=== PATIENT | male | born 2000 | race Caucasian/White ===

== ENCOUNTER 2021-08-19 06:47 | Emergency (ER) | payer BC, SELFPAY ==
[2021-08-19 06:57] VITALS: BP 142/84; PULSE 89; RESP 16; TEMP 36.7; O2SAT 98
--- NOTE | 2021-08-19 07:07 | ED.GENADULT ---
HPI - General Adult General Chief complaint: Unspecified Stated complaint: not feeling well. Got my vaccine yesterday. Time Seen by Provider: 08/19/21 06:53 Source: patient History of Present Illness HPI narrative: Patient presents with generalized fatigue and not feeling well with associated nausea and vomiting. He reports he got his Covid vaccine yesterday he was initially doing well however in the light started to feel tired he was concerned so wanted to come to the ER for evaluation. He also reports he has a toothache which he is seeing a dentist for is given antibiotics and steroids however is pain has continued and is noted swelling he is unsure if this is contributing to his symptoms. Specifically, cough, abdominal pain, fevers or chills Related Data Allergies Allergy/AdvReac Type Severity Reaction Status Date / Time No Known Allergies Allergy Unverified 08/19/21 07:19 Review of Systems Review of Systems: CONSTITUTIONAL: Denies fever, chills, or sweats. EYES: Denies visual changes, redness, or discharge. ENT: Denies rhinorrhea, congestion, sore throat, or otalgia. CARDIOVASCULAR: Denies chest pain, palpitations, or edema. RESPIRATORY: Denies cough or dyspnea. GASTROINTESTINAL: Denies abdominal pain, or diarrhea. GENITOURINARY: Denies dysuria or hematuria. SKIN: Denies rash or itching. MUSCULOSKELETAL: Denies back pain, joint pain, or myalgia. NEUROLOGIC: Denies headache, numbness, dizziness, or weakness. PSYCHIATRIC: Denies anxiety or depression. All systems reviewed & are unremarkable except as noted in HPI and below PMFSH Social History Social History (Updated 08/19/21 @ 07:10 by Juan Levy MD) Alcohol intake: never Exam Narrative: GENERAL: Well-appearing, well-nourished, and in no acute distress. HEAD: Normocephalic, atraumatic. EYES: PERRLA and EOMI. ENT: Nares clear, no rhinorrhea or epistaxis. Mucous membranes moist. Moderate swelling on the right upper gumline with erythema and tenderness palpation NECK: Supple. No masses. No JVD ABDOMEN: Soft, nontender, nondistended, normal active bowel sounds. EXTREMITIES: Normal range of motion. No edema. SKIN: Warm, dry, no rash. NEURO: No focal deficits. Alert and oriented x3. PSYCH: Normal mood and affect. Course Vital Signs Vital signs: Vital Signs Temperature 36.7 C 08/19/21 06:57 Pulse Rate 89 08/19/21 06:57 Respiratory Rate 16 08/19/21 06:57 Blood Pressure 142/84 H 08/19/21 06:57 Pulse Oximetry 98 08/19/21 06:57 Temperature 36.5 C 08/19/21 07:39 Pulse Rate 90 08/19/21 07:39 Respiratory Rate 14 08/19/21 07:39 Blood Pressure 112/62 08/19/21 07:39 Pulse Oximetry 100 08/19/21 07:39 Medical Decision Making MDM Narrative Medical decision making narrative: H&P as above, vss, pt looks clinically well, exam is reassuring, labs/img considered, symptomatic relief available as needed, on reevaluation pt continues to looks clinically well. Suspect fatigue and malaise is related to recent Covid vaccination site recovery in the next 24 to 48 hours, number pain and swelling is likely a dental abscess. Patient is already established care with a dentist who prescribed him antibiotics and steroids. Patient encouraged to contact his dentist for possible drainage and reevaluation. dns severe sepsis, airway compromise, severe dehydration. plan to tx/monitor as op w/ pcm f/u findings/plan discussed with pt, pt agree/comfortable with plan, return precautions given Vital Signs Vital Signs: Vital Signs Temperature 36.7 C 08/19/21 06:57 Pulse Rate 89 08/19/21 06:57 Respiratory Rate 16 08/19/21 06:57 Blood Pressure 142/84 H 08/19/21 06:57 Pulse Oximetry 98 08/19/21 06:57 Temperature 36.5 C 08/19/21 07:39 Pulse Rate 90 08/19/21 07:39 Respiratory Rate 14 08/19/21 07:39 Blood Pressure 112/62 08/19/21 07:39 Pulse Oximetry 100 08/19/21 07:39 Discharge Plan Discharge Clinical Impression: Ab
[2021-08-19 07:39] VITALS: BP 112/62; PULSE 90; RESP 14; TEMP 36.5; O2SAT 100
== END 2021-08-19 07:40 | disposition home or self-care (01) ==
LOC: ANHED 07:14
PROVIDERS: Emergency Provider Emergency Medicine; PCP Pediatrics
DX: R53.83 Other fatigue (principal); R11.2 Nausea with vomiting, unspecified; K04.7 Periapical abscess without sinus
CPT/HCPCS: 99283

== ENCOUNTER 2024-01-12 06:21 | Emergency (ER) | payer BC, MEDICAID, SELFPAY ==
[2024-01-12 06:22] VITALS: BP 181/97; PULSE 100; RESP 20; TEMP 36.6; O2SAT 97
[2024-01-12 06:34] LABS: Basophils Absolute Auto 0.1 K/mm3 (0.0-0.1); Basophils Percent Auto 0.7 % (0.2-1.2); Eosinophils Percent Auto 0.5 % (0-4.4); Hematocrit 48.1 % (42.0-52.0); Hemoglobin 16.1 g/dL (14.0-18.0); Immature Granulocyte Absolute 0.16 K/mm3 (0.00-0.031); Immature Granulocyte Percent A 1.9 % (0-0.5); Lymphocytes Absolute Auto 1.51 K/mm3 (0.9-3.2); Mean Corpuscular HGB Conc 33.5 g/dl (32-36); Mean Corpuscular Hemoglobin 32.4 pg (26-34); Mean Corpuscular Volume 96.8 fl (80-100); Mean Platelet Volume 9.3 fl (7.4-10.4); Monocytes Absolute Auto 0.7 K/mm3 (0.1-0.6); Monocytes Percent Auto 8.6 % (2.6-8.5); Neutrophils Absolute Auto 5.9 K/mm3 (1.3-6.7); Neutrophils Percent Auto 70.3 % (45.5-73.1); Platelet Count Result 326 k/mm3 (150-375); Red Blood Count 4.97 M/mm3 (4.6-6.20); Red Cell Distribution Width 12.9 % (11.5-14.5); White Blood Count 8.4 K/mm3 (4.5-10.0)
[2024-01-12 06:46] LABS: INR 0.8; Prothrombin Time 11.7 Seconds (11.1-14.7)
[2024-01-12 06:47] LABS: Alanine Aminotransferase 129 U/L (6-50); Albumin Level 4.4 g/dL (3.5-5.1); Alkaline Phosphatase 116 U/L (38-126); Anion Gap 7 mmol/L (8-16); Aspartate Amino Transferase 126 U/L (17-59); Bilirubin,Total 0.6 mg/dL (0.2-1.3); Blood Urea Nitrogen 12 mg/dL (9-20); Calcium 9.1 mg/dL (8.4-10.2); Carbon Dioxide 27 mmol/L (22-30); Chloride 103 mmol/L (98-107); Estimated CRCL calculation 126 ml/min; Estimated Glomerular Filt Rate > 60; Glucose 105 mg/dL (65-110); Partial Thromboplastin Time 24.5 SECONDS (22.3-36.8); Potassium 3.6 mmol/L (3.4-5.0); Sodium 137 mmol/L (137-145)
[2024-01-12 07:01] VITALS: PULSE 95; RESP 18; O2SAT 97
[2024-01-12 07:09] VITALS: BP 162/141; PULSE 96; RESP 19; O2SAT 97
--- NOTE | 2024-01-12 07:16 | ED.GIBLEED ---
HPI - GI Bleed General Chief complaint: GI Bleed Stated complaint: Vomited blood x1 Time Seen by Provider: 01/12/24 07:13 Source: patient Mode of arrival: ambulatory Limitations: no limitations History of Present Illness HPI Narrative: 23 years old white male workup at 5:30 a.m. today was feeling nauseated and feeling well, subsequently vomited once was brownish, bloody emesis, once he denies any diarrhea, abdominal pain or having similar symptoms in the past. Patient been drinking vodka on average 750 mL daily for the last 6 months last drink was last night Related Data Home Medications Medication Instructions Recorded Confirmed albuterol sulfate 90 mcg/actuation inhalation 01/12/24 aerosol inhaler amoxicillin 875 mg tablet mg 01/12/24 benzonatate 100 mg capsule mg PO 01/12/24 ondansetron HCl 4 mg tablet mg 01/12/24 prednisone 20 mg tablet mg 01/12/24 Allergies Allergy/AdvReac Type Severity Reaction Status Date / Time No Known Allergies Allergy Verified 01/12/24 06:26 Review of Systems Review of Systems: All systems reviewed & are unremarkable except as noted in HPI and below PMFSH Social History Social History (Updated 08/19/21 @ 07:10 by Juan Levy, ) Alcohol intake: never Exam Narrative: General appearance: Well-developed, well-nourished Skin: Normal color Head: Normocephalic, nontraumatic Eyes: Clear conjunctiva ENT: Oropharynx normal, ears normal, nose normal Neck: Supple, nontender Chest and respiratory: Airway patent, no respiratory distress, no accessory muscle use Heart: Regular rate/rhythm Abdomen: Soft, nontender, no organomegaly, quiet bowel sounds Vascular: Normal peripheral pulses, normal capillary refill. Musculoskeletal: Normal range of motion, nontender back Neurologic: Alert and oriented ?3, [employer] is normal as tested, no gross motor deficit Course Vital Signs Vital signs: Vital Signs Temperature 36.6 C 01/12/24 06:22 Pulse Rate 100 01/12/24 06:22 Respiratory Rate 20 01/12/24 06:22 Blood Pressure 181/97 H 01/12/24 06:22 Pulse Oximetry 97 01/12/24 06:22 Oxygen Delivery Room Air 01/12/24 06:22 Temperature 36.6 C 01/12/24 06:22 Pulse Rate 84 01/12/24 07:53 Respiratory Rate 16 01/12/24 07:53 Blood Pressure 140/92 H 01/12/24 07:53 Pulse Oximetry 98 01/12/24 07:53 Oxygen Delivery Room Air 01/12/24 06:22 MDM - GI Bleed MDM Narrative Medical decision making narrative: Patient drinks 750 mL of vodka daily for the last 6 months. Came to the ED with vomiting once of bloody emesis without abdominal pain Differential diagnosis alcoholic gastritis, peptic ulcer disease, esophagitis, GERD less likely esophageal varies. Blood workup showed elevated liver enzyme, AST 126 ALT 129, secondary to alcohol use disorder. In the ED patient received 40 mg of Protonix IV, GI cocktail with moderate improvement. Patient was advised to quit drinking alcohol, Discharged on Protonix and follow up with Dr. Vernon within 5 days for further management. the pt was discharged to home.the pt,s condition upon discharge was fair,education was provided to the pt in reference to the final impression,discharge study results,treatment,prognosis and need for follow up . Differential Diagnosis Differential diagnosis: Likely other (As above) Lab Data 01/12/24 06:29 01/12/24 06:29 Labs: Lab Results 01/12/24 Range/Units 06:29 WBC 8.4 (4.5-10.0) K/mm3 RBC 4.97 (4.6-6.20) M/mm3 Hgb 16.1 (14.0-18.0) g/dL Hct 48.1 (42.0-52.0) % MCV 96.8 (80-100) fl MCH 32.4 (26-34) pg MCHC 33.5 (32-36) g/dl RDW 12.9 (11.5-1
[2024-01-12] MEDS: BELLADONNA ALK/PHENOB ELIX 10 ML, MAG HYDROX/ALUMINUM HYD/SIMETH 30 ML, LIDOCAINE HCL 2... PO (07:25)
[2024-01-12] MEDS: PANTOPRAZOLE SODIUM IV 40 MG VIAL IV PUSH (07:25)
[2024-01-12 07:53] VITALS: BP 140/92; PULSE 84; RESP 16; O2SAT 98
== END 2024-01-12 07:59 | disposition home or self-care (01) ==
PROVIDERS: Emergency Medicine; Emergency Provider Emergency Medicine
DX: K29.20 Alcoholic gastritis without bleeding (principal); K70.10 Alcoholic hepatitis without ascites; F10.10 Alcohol abuse, uncomplicated; Y90.9 Presence of alcohol in blood, level not specified
CPT/HCPCS: 36415; 80053; 85025; 85610; 85730; 86850; 86900; 86901; 96374; 99284; A9270; C9113

== ENCOUNTER 2024-01-24 09:42 | Outpatient (CLI) | payer BC, MEDICAID, SELFPAY ==
--- NOTE | ~2024-01-24 | US_ITS ---
Limited Abdominal Sonogram: Real-time sonographic imaging of the right upper quadrant was performed. Clinical History: Alcoholic hepatitis Findings: The liver appears mildly echogenic, with no evidence of mass lesion or bile duct dilatatio n. Main portal vein demonstrates normal direction of flow. The gallbladder is well distended, and suly ears normal with no evidence of gallstone or wall thickening. The common bile duct measures 3 mm. Th e visualized pancreas, aorta, and IVC are unremarkable. Impression: Probable fatty infiltration of liver. Reviewed, dictated and finalized at location M. Impression: Probable fatty infiltration of liver.
[2024-01-24 12:41] LABS: Hepatitis B Surface Antigen Negative (Negative)
[2024-01-24 12:48] LABS: Iron 192 ug/dL (49-181)
[2024-01-24 13:07] LABS: Free T4 Free Thyroxine 0.86 ng/mL (0.78-2.19)
[2024-01-24 13:08] LABS: HAV RESULT Negative (Negative)
[2024-01-24 13:59] LABS: Folic Acid 10.9 ng/mL (2.76->20)
[2024-01-24 15:34] LABS: Hepatitis B Core IgM Result Negative (Negative)
[2024-01-24 15:49] LABS: Hepatitis C Virus Antibody Negative (Negative)
== END 2024-01-24 09:43 | disposition home or self-care (01) ==
PROVIDERS: PCP Emergency Medicine; Visit Provider Emergency Medicine
DX: K70.10 Alcoholic hepatitis without ascites (principal)
CPT/HCPCS: 36415; 76705; 80074; 82607; 82746; 83540; 84439; 84443

== ENCOUNTER 2024-02-17 11:43 | Emergency (ER) | payer BC, SELFPAY ==
--- NOTE | 2024-02-17 12:17 | PC.NURSE ---
pt LWBS, did not want to wait
== END 2024-02-17 12:17 | disposition left against medical advice (07) ==
PROVIDERS: PCP Emergency Medicine
DX: Z53.21 Procedure and treatment not carried out due to patient leaving prior to being seen by health care provider (principal)
CPT/HCPCS: 99199